=== PATIENT | female | born 1955 | race Caucasian/White ===

== ENCOUNTER → 2016-08-27 | Outpatient (CLI) | payer OTHER ==
[~2016-08-27] MED LIST: ACYCLOVIR 200200 MG; ADIPEX-P37.5 M1 PO; ADVAIR 250-501 EACH IH; ALDACTONE25 MG PO; ASMANEX0.135 GM IH; ATRALIN45 GM TP; BACLOFEN 10MG T10 M1 PO; CLARINEX5 MG PO; ENDOCET 10-3251 EACH PO; ENDOCET 5-3251 EACH PO; FENTANYL PA12 MCG/H1 TP; FENTANYL PA25 MCG/HR TP; FINACEA50 GM TP; IBUPROFEN 800800 M1 PO; KAPVAY0.1 MG PO; LEVOTHROID150 MCG PO; LIDODERM 5%1 PATCH TOP; LIDODERM TP; MELOXICAM7.5 MG PO; METHOCARBAMOL750 MG PO; NEURONTIN 300300 M1 PO; NOVAFERRUM 5050 MG PO; OMEPRAZOLE20 M2 PO; ORACEA40 MG PO; OXYCODONE-ACET1 EAC2 PO; OXYCONTIN20 MG PO; POTASSIUM20; PREMPRO 0.625-1 EACH PO; PRISTIQ50 MG PO; PROVENTIL; SINGULAIR 10 MG10 M1 PO; TOPAMAX50 MG PO; TOPROL XL100 MG PO; VITAMIN D 5050000 I1; XANAX 0.5 MG0.5 M1 PO; XANAX XR2 MG PO
[2016-08-27 10:35] LABS: CREATININE 0.9 mg/dL (0.6-1.0)
== END ==
LOC: CAT 07:50
PROVIDERS: Nurse Practitioner
DX: R10.9 Unspecified abdominal pain (principal)

== ENCOUNTER 2016-10-09 05:30 | Day surgery (SDC) | payer OTHER ==
[~2016-10-09] VITALS: Ht 165.1 cm; Wt 113.9 kg
[2016-10-09] VITALS (8 sets, daily range): BP systolic 94–119; BP diastolic 56–89
--- NOTE | ~2016-10-09 | S ---
[facility] [place] [address] SURGICAL PATH RPT PROCEDURE Name: SAVI PEREZ Room #: [facility].#: [id number] Admission: 10/09/16 Date of : 55 Discharge: 10/10/16 Report #: [id number] Path Case #: [id number] PATHOLOGY REPORT COLLECTION DATE: 10/09/2016 RECEIVED DATE: 10/09/2016 SUBMITTING PHYS: Dr. Cuco Corrales OTHER PHYS: Dr. 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 - Cholelithiasis. COMMENT: A sales representative publications slide is co-reviewed by Dr. Akhil Contreras. (IUV:mgr; 10/11/2016) PATHOLOGIST: Naomie Ace M.D. REPORT ELECTRONICALLY SIGNED BY: Naomie Ace M.D. DATE/TIME: 10/11/2016 15:27 * * * * * * * * * * * * GROSS PATHOLOGY: Received in formalin labeled "Savi Perez, gallbladder," is a 8.2 x 3.5 x 2.8 cm, previously opened torn and ragged gallbladder with a moderate amount of attached adipose tissue, green blue to pink ragged and rough serosal surfaces. The ductal opening to the gallbladder is torn open. The gallbladder reveals yellow-green smooth to velvety mucosa and an average wall thickness of 0.1 cm. Calculi are present, fernandez to brown, friable and range in size from 0.1 to 0.8 cm in maximum dimension. No masses are noted grossly. Watermelon Inspector sections from the body and fundus are submitted along with the proximal margin in cassette A1. (CAN; 10/10/2016) CLINICAL HISTORY: Cholecystitis [facility] [place] [address] SURGICAL PATH RPT PROCEDURE Name: SAVI PEREZ Obdulia Room #: [facility].#: [id number] Admission: 10/09/16 Date of : 55 Discharge: 10/10/16 Report #: [id number] Path Case #: [id number] INITIAL CPT CODE(S): A; 15303 Professional services performed by [facility] [address], [place] [address] Technical services performed by [employer] at [address] [place] [address], [place] [address]. [facility] [address] [place] [address] PHONE: [phone] DIRECTOR: Abundio Odonnell M.D. * * * END OF REPORT * * *
--- NOTE | ~2016-10-09 | EKG ---
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
[~2016-10-09 05:30] MED LIST changes: +ABILIFY10 MG PO; +LEVOTHYROXIN0.175 MG PO; +OXYCODONE HCL E10 MG PO; +REMERON15 M1 PO; +VENTOLIN HFA 1818 GM INH
[2016-10-09 07:13] LABS: CALCIUM 8.9 mg/dL (8.5-10.1); CREATININE 1.1 mg/dL (0.6-1.0); POTASSIUM 3.9 mmol/L (3.5-5.1)
[2016-10-10 00:38] VITALS: BP 109/61
[2016-10-10 04:00] VITALS: BP 116/73
[2016-10-10 06:31] LABS: HEMOGLOBIN 10.7 gm/dL (12.0-15.0); MCH 26.3 pg (26.0-34.0); MCHC 32.6 g/dL (28.0-37.0); MCV 80.6 fL (80.0-100.0); RBC 4.09 mil/uL (4.20-5.00); WBC 9.6 thou/uL (4.0-11.0)
[2016-10-10 06:42] LABS: CALCIUM 8.6 mg/dL (8.5-10.1); POTASSIUM 4.2 mmol/L (3.5-5.1)
[2016-10-10 09:03] VITALS: BP 118/62
[2016-10-10] MEDS ORDERED: HYDROCODON-ACE1 EAC7 PO (10:16)
[2016-10-10 11:43] VITALS: BP 118/62
== END 2016-10-10 12:32 | disposition home or self-care (01) ==
LOC: OR 05:30 → TBA 05:30 → OR 12:34 → 5S 13:28 → OR 15:51
PROVIDERS: Surgery
DX: K80.12 Calculus of gallbladder with acute and chronic cholecystitis without obstruction (principal); K82.8 Other specified diseases of gallbladder; K66.0 Peritoneal adhesions (postprocedural) (postinfection); E66.01 Morbid (severe) obesity due to excess calories; I10 Essential (primary) hypertension; J45.909 Unspecified asthma, uncomplicated; E03.9 Hypothyroidism, unspecified; G43.909 Migraine, unspecified, not intractable, without status migrainosus; G47.33 Obstructive sleep apnea (adult) (pediatric); F32.89 Other specified depressive episodes; F41.8 Other specified anxiety disorders; K21.9 Gastro-esophageal reflux disease without esophagitis; Z98.42 Cataract extraction status, left eye; Z96.642 Presence of left artificial hip joint; Z98.890 Other specified postprocedural states; Z68.41 Body mass index [BMI] 40.0-44.9, adult
CPT/HCPCS: 50010; 50101; 50249; 50331; 50411; 50555; 50558; 50962; 51489; 51975; 52265; 52266; 53307; 54022; 54118; 55245; 55317; 56462; 56525; 56526; 56639; 56970; 62110; 62900; 65065; 70005

== ENCOUNTER 2016-12-11 12:58 | Emergency (ER) | payer OTHER ==
[~2016-12-11] VITALS: Ht 167.6 cm; Wt 115.7 kg
[~2016-12-11 12:58] MED LIST changes: +HYDROCODON-ACE1 EAC7 PO
== END 2016-12-11 15:20 | disposition home or self-care (01) ==
LOC: ER 12:58
DX: S49.92XA Unspecified injury of left shoulder and upper arm, initial encounter (principal); I10 Essential (primary) hypertension; E03.9 Hypothyroidism, unspecified; J45.909 Unspecified asthma, uncomplicated; G43.909 Migraine, unspecified, not intractable, without status migrainosus; K21.9 Gastro-esophageal reflux disease without esophagitis; F32.9 Major depressive disorder, single episode, unspecified; F41.9 Anxiety disorder, unspecified; G47.30 Sleep apnea, unspecified; Z96.642 Presence of left artificial hip joint; Z88.8 Allergy status to other drugs, medicaments and biological substances; W01.0XXA Fall on same level from slipping, tripping and stumbling without subsequent striking against object, initial encounter; Y93.89 Activity, other specified; Y92.89 Other specified places as the place of occurrence of the external cause; Y99.8 Other external cause status

== ENCOUNTER 2019-05-31 04:28 | Emergency (ER) | payer OTHER ==
[~2019-05-31] VITALS: Ht 167.6 cm; Wt 136.1 kg
[2019-05-31 04:49] LABS: URINE BILIRUBIN NEGATIVE (Negative); URINE BLOOD 2+ (Negative); URINE CLARITY CLEAR; URINE COLOR YELLOW; URINE GLUCOSE-RANDOM* NEGATIVE (Negative); URINE KETONES NEGATIVE (Negative); URINE NITRITE-REFLEX NEGATIVE (Negative); URINE PROTEIN (DIPSTICK) NEGATIVE (Negative); URINE SPECIFIC GRAVITY >= 1.030 (1.005-1.035); URINE UROBILINOGEN 0.2 E.U./dl (0.2-1.0)
[2019-05-31 04:51] LABS: URINE LEUKOCYTES-REFLEX 1+ (Negative)
[2019-05-31 04:58] LABS: BACTERIA-REFLEX 1-9 Few /HPF (None Seen); CASTS None Seen /LPF (None Seen); CRYSTALS None Seen /LPF (None Seen); MUCUS 0-3 Light strn/LPF (None Seen); SQUAMOUS 0-3 Few /LPF (0-3); TRANSITIONAL EPITHEL CELL 0-3 Few /LPF (None Seen); URINE RBC 0-2 Rare /HPF (0-2); URINE WBC-REFLEX 6-15 Few /HPF (0-5)
[2019-05-31 05:44] LABS: BASOPHILS 0.7 % (0.0-2.0); EOSINOPHILS 0.2 % (0.0-3.0); HEMATOCRIT 45.1 % (37.0-47.0); HEMOGLOBIN 14.9 gm/dL (12.0-15.0); LYMPHOCYTES 8.2 % (24.0-44.0); MCH 31.1 pg (26.0-34.0); MCHC 32.9 g/dL (28.0-37.0); MCV 94.4 fL (80.0-100.0); MONOCYTES 8.3 % (1.0-8.0); PLATELET COUNT 272 thou/uL (150-400); POLYS 82.6 % (36.0-66.0); RBC 4.78 mil/uL (4.20-5.00); RDW 13.8 % (10.5-14.5); WBC 13.4 thou/uL (4.0-11.0)
[2019-05-31 05:51] LABS: ANION GAP 14 mmol/L (7-16); BUN 19 mg/dL (7-18); CALCIUM 9.6 mg/dL (8.5-10.1); CHLORIDE 101 mmol/L (98-107); CO2 22 mmol/L (21-32); CREATININE 1.5 mg/dL (0.6-1.0); GLUCOSE 165 mg/dL (74-106); POTASSIUM 4.1 mmol/L (3.5-5.1); SODIUM 137 mmol/L (136-145)
[2019-05-31 05:57] LABS: ALBUMIN 3.4 g/dL (3.4-5.0); DIRECT BILIRUBIN < 0.1 mg/dL (<0.1-0.2); SGOT 17 U/L (15-37); SGPT 20 U/L (30-65); TOTAL BILIRUBIN 0.3 mg/dL (<0.1-1.0); TOTAL PROTEIN 7.7 g/dL (6.4-8.2)
[2019-05-31] MEDS ORDERED: KEFLEX500 M1 PO (06:42)
[2019-05-31] MEDS ORDERED: ZOFRAN ODT4 MG PO (06:42)
[2019-05-31] MEDS ORDERED: MOBIC15 MG PO (06:42)
[2019-05-31 07:00] VITALS: BP 157/94
== END 2019-05-31 07:00 | disposition home or self-care (01) ==
LOC: ER 04:28
PROVIDERS: Emergency Medicine
DX: N39.0 Urinary tract infection, site not specified (principal); I10 Essential (primary) hypertension; E03.9 Hypothyroidism, unspecified; K21.9 Gastro-esophageal reflux disease without esophagitis; G47.30 Sleep apnea, unspecified; J45.909 Unspecified asthma, uncomplicated; F32.9 Major depressive disorder, single episode, unspecified; F41.9 Anxiety disorder, unspecified

== ENCOUNTER → 2020-01-21 | Outpatient (CLI) | payer OTHER ==
[~2020-01-21] MED LIST changes: +KEFLEX500 M1 PO; +METFORMIN HCL500 MG PO; +MOBIC15 MG PO; +REMERON 30 MG T30 M1 PO; +ZOFRAN ODT4 MG PO
== END ==
LOC: LAB 10:49
PROVIDERS: ATTEND Surgery
DX: Z01.812 Encounter for preprocedural laboratory examination (principal); Z20.828 Contact with and (suspected) exposure to other viral communicable diseases

== ENCOUNTER 2020-01-26 13:33 | Observation (INO) | payer OTHER ==
[2020-01-26] VITALS (8 sets, daily range): BP systolic 132–171; BP diastolic 71–92
[~2020-01-26] VITALS: Ht 167.6 cm; Wt 140.6 kg
[2020-01-26 14:22] LABS: CALCIUM 9.2 mg/dL (8.5-10.1); CREATININE 1.1 mg/dL (0.6-1.0); POTASSIUM 3.9 mmol/L (3.5-5.1)
--- NOTE | 2020-01-26 14:48 | EKG ---
[facility] [place] [address] ELECTROCARDIOGRAM REPORT Name: EMILY PEREZ Room #: 150-1 [facility]..#: [id number] Admission: 01/26/20 Attend Phys: Erwin Hernandez MD Discharge: Date of : 55 Report #: [id number] THIS REPORT FOR: cc: Nieves Malik MD, Jennifer S. 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1955 Requested By: Erwin Hernandez Order Number: [id number] MD: Scott Briggs Measurements Intervals [place] Rate: 91 P: 15 [place]: 172 QRS: -21 QRSD: 88 T: 20 QT: 353 QTc: 435 Interpretive Statements Sinus rhythm Low voltage, precordial leads LVH by voltage Compared to ECG 10/09/2016 07:13:30 Low QRS voltage now present Left ventricular hypertrophy now present Electronically Signed On 01-26-2020 14:48:28 CDT by Scott Briggs [email or web address] <ELECTRONICALLY SIGNED> By: Scott Briggs MD, FACC 01/26/20 1448 1404 1404 Scott Briggs MD, FACC /EPI
--- NOTE | 2020-01-27 01:05 | NUR ---
PT GOT TO THE FLOOR DURING SHIFT CHANGE.PT C/O PAIN ON HER ABD,MANAGED WITH MED.UP WITH ASSIST X1/GAIT BELT AND WALKER TO THE BR.LAP SITES NOTED ON HER ABD COVERED WITH BANDAID AND ABD BINDER.SCD TO BLE.PT VOIDING WELL.PT ENCOURAGED TO USE HER INCENTIVE SPIROMETER WHILE AWAKE.CALL LIGHT WITHIN REACH.
[2020-01-27 03:47] VITALS: BP 117/64
[2020-01-27 08:11] VITALS: BP 143/85
--- NOTE | 2020-01-27 12:48 | O ---
[facility] [place] [address] OPERATIVE REPORT Name: EMILY PEREZ Room #: 445-P [facility] M.Hodan#: [id number] Admission: 01/26/20 Attend Phys: Erwin Hernandez MD Discharge: Date of : 55 Report #: [id number] THIS REPORT FOR: cc: Nieves Malik MD, Jennifer S. MD Chu,Erwin Stevens MD ~ CC: Nieves Hernandez DATE OF SERVICE: 01/26/2020 PREOPERATIVE DIAGNOSIS: Incarcerated incisional hernia. POSTOPERATIVE DIAGNOSES: Incarcerated incisional hernia with omentum stuck in the hernia sac. Her portion of the small bowel, probably have been inside the hernia sac also. PROCEDURES PERFORMED: Laparoscopic repair of incarcerated incisional hernia with Ventralight mesh 6 x 6-inch kalispel. ANESTHESIA: General. COMPLICATIONS: None. ESTIMATED BLOOD LOSS: 50 mL. PROCEDURE NOTE: With the patient under general anesthesia, abdomen was prepped and draped in sterile fashion. Towels were placed around the operative site. Ioban was placed over the abdomen. Drape was then placed over this area. Time-out was performed. The patient did receive preoperative IV antibiotics. A 0.25% Marcaine was used to anesthetize the skin and subcutaneous tissue. A cutdown incision was made in the left upper quadrant. This is about 2.5 cm in length. Dissection was carried down through the subcutaneous tissue. The anterior fascia was identified. The anterior fascia was incised transversely. The muscle was spread along the length of its fiber vertically. The posterior fascia was identified. Posterior fascia was opened along with the peritoneum. 0 Vicryl suture placed on the fascia edges for retraction, both the anterior fascia and the posterior fascia and peritoneum. Air balloon trocar was then placed under direct visualization in the peritoneal cavity. The balloon was inflated, CO2 was placed. After the patient was asleep, the hernia, did not feel quite the size that it did preoperatively. A laparoscopic evaluation of the abdomen was performed. Two 5 mm trocars were placed in the lateral abdomen lateral to the inferior epigastric artery. These were placed under visualization. Laparoscopically, there was a small amount of blood in the right lower quadrant; these were not coming from a trocar site. There was omentum stuck inside the hernia sac. I was looking for the source of this blood; it was [address] [address] OPERATIVE REPORT Name: EMILY PEREZ Room #: 445-P [facility] Catherine Badillo#: [id number] Admission: 01/26/20 Attend Phys: Erwin Hernandez MD Discharge: Date of : 55 Report #: [id number] difficult to find. I believe it probably came from the omentum as it was pulled up with the insufflation. There were 2 areas of small bowel that looked irregular; 1 to the right side that has some thickening to it and there was a definite heavy thickened, inflamed bowel that was more in the lower midline, which the mesentery actually had stuck to each other. His bowels pretty heavy, it was not obstructed. I suspect this was inside the hernia. The patient has stated that she has been having more and more issues from the hernia. I did not see any active bleeding from this area. The omentum was taken down. There was some blood along the omentum posterior that I could not see. The omentum was taken down out of the hernia sac using a Harmonic scalpel. The omentum had kind of compartmentalized as it went up into the hernia. There was one main defect. There was another defect on the patient's right side. The omentum came out and ended up having length of the omentum that was devascularized. The vitalized part of the omentum was resected. There was also a band in the omentum that I divided and I think I ended up taking that part of the omentum out anyway. Minimum was brought out through the cutdown site without difficulty. Specimen will be sent to pathology. The fascia was then isolated. The defect was measured and measured approximately 5-6 cm diameter. This was as I thought was due to the gallbladder surgery. A 6-inch circular Ventralight was chosen. This was placed through the cutdown side. The balloon trocar was then replaced. The mesh was oriented. The tubing of the mesh was brought out through the center part of the hernia sac. The balloon was inflated on the Ventralight and this allowed the mesh to open up completely. Once it was opened up and seen to be positioned properly, the mesh was tacked with SorbaFix. 30 tacks were used. The balloon was deflated and then removed. Transfascial sutures were then placed at 12, 2 o'clock, 10 o'clock position and then also at 4, 6 and 8 o'clock position. Six sutures were placed. Due to the patient's body habitus, I felt more secure by having more transfascial suture. This was placed with CV2 [place]-Lambert suture. The needle was actually removed and a suture retrieval was used to go through the abdominal wall and then one of the end of the suture was brought out and then the suture retriever was placed through the same small hole and then into the wall to the mesh. This grabbed the other end. Sutures tied down. This was performed at all 6 sites. Irrigation was performed. No bleeding was identified. Bowel was not ischemic. There was no injury to the bowel identified. There was definite scar involving 2 section of the bowel consistent with the bowel being inside the hernia sac. Also when I looked at the content of the hernia sac, the omentum that was seen did not seem to fill the whole hernia sac. Also the patient's omentum seemed to be more midline and then to the left. The intestines on the lower part of the abdomen and also to the right did not have the omentum covering it. Irrigation was aspirated out as much as possible. CO2 was evacuated. Trocars removed. The fascia defect at the cutdown site was closed. The posterior fascia was closed with [id number] 0 PDS x 2. The anterior fascia was closed with 0 PDS [id number] x 2. Skin was irrigated. Skin was closed with 5-0 PDS at the 3 trocar sites. The small incisions for the suture retrieval, these were closed [address] [address] OPERATIVE REPORT Name: EMILY PEREZ Room #: 445-P [facility] M.R.#: [id number] Admission: 01/26/20 Attend Phys: Erwin Hernandez MD Discharge: Date of : 55 Report #: [id number] with Dermabond. Band-Aids applied. The patient was awakened and taken to recovery and tolerated the procedure well. <ELECTRONICALLY SIGNED> By: Erwin Hernandez MD 01/27/20 1248 1142 1223 Erwin Hernandez MD /nt
[2020-01-27] MEDS ORDERED: PERCOCET PO (13:13)
[2020-01-27] MEDS ORDERED: VALIUM5 MG PO (13:14)
[2020-01-27 13:46] VITALS: BP 143/85
--- NOTE | 2020-01-27 14:25 | NUR ---
CM REVIEWED CHART. PT IS S/P HERNIA REPAIR. PT REPORTS SHE LIVES IN A TOWNHOUSE ALONE. PT REPORTS 28 STEPS WITH HANDRAILS TO ENTER. PT REPORTS USING A CANE FOR AMBULATION AT TIMES. PT REPORTS SHE WILL HAVE NO NEEDS FROM CM. PT HAS ORDERS TO DISCHARGE HOME TODAY.
--- NOTE | 2020-01-27 14:59 | NUR ---
PT CARE ASSUMED AT 0700. A&Ox4. IV PATENT WITH NO REDNESS OR EDEMA, FLUIDS INFUSING WITH ABX GOING. PAIN MANAGED WELL WITH PAIN MEDICATION ON BOARD. 9 LAPSITES DRY AND INTACT. PT PERSONAL CANE IN ROOM. PT DISCHARGED WITH NO FURTHER QUESTIONS. DIET NOT ADVANCED PER DR. BARNES. DR. BARNES EDUCATED PT ON DIET. SCD'S IN PLACE. IV REMOVED
--- NOTE | 2020-01-28 18:06 | PATH ---
[facility] [address] [place] [address] PATHOLOGY RPT PROCEDURE Name: SAVI PEREZ Obdulia Room #: 445-P [facility] Badillo#: [id number] Admission: 01/26/20 Date of : 55 Discharge: 01/27/20 Report #: [id number] Path Case #: [id number] [facility] Accession Number: [id number] . 01 Material submitted: . abdomen - OMENTUM . 01 Clinical history: . LAPAROSCOPIC HERNIA, INCISIONAL REPAIR WITH MESH . 02 Diagnosis: Omentum, omentectomy: - 8.8 cm of omentum associated with congestion and moderate chronic inflammation as well as mesothelial hyperplasia, history of hernia. . (IUV:mml; 01/28/2020) QLM 01/28/2020 1514 Local . 02 Electronically signed: . Naomie Ace MD, Pathologist NPI- [id number] . 01 Gross description: . Received in formalin labeled "Savi Perez, omentum" are multiple portions of fernandez-yellow lobulated fibroadipose tissue measuring in aggregate 8.8 x 6.7 x 1.8 cm. Focal adhesions are present on the external surfaces. Upon sectioning, the cut surfaces are yellow-fernandez and lobulated. No masses are grossly identified. Department Clerk tissue is submitted in cassette A1. ([facility]; 01/27/2020) [facility] 01/27/2020 1711 Local . 02 Pathologist provided ICD-10: K65.9 . 02 CPT . 662087 Specimen Comment: A courtesy copy of this report has been sent to [phone], [phone]- Specimen Comment: [phone] Specimen Comment: Report sent to / DR PEDRO Performed at: [address] [id number] MD Jose Mosher MD Phone: [phone] Performed at: [address] [address] PATHOLOGY RPT PROCEDURE Name: SAVI PEREZ Room #: 445-P NICK Badillo#: [id number] Admission: 01/26/20 Date of : 55 Discharge: 01/27/20 Report #: [id number] Path Case #: [id number] [address] [place], [place] [id number] MD Naomie Ace MD Phone: [phone]
== END 2020-01-27 14:30 | disposition home or self-care (01) ==
LOC: OR 13:33 → TBA 13:56 → 4S 18:52 → OR 18:53 → 4S 18:54
PROVIDERS: ADMIT Surgery; ATTEND Surgery
DX: K43.0 Incisional hernia with obstruction, without gangrene (principal); N39.0 Urinary tract infection, site not specified; K80.00 Calculus of gallbladder with acute cholecystitis without obstruction; N17.9 Acute kidney failure, unspecified; E87.2 Acidosis; E66.01 Morbid (severe) obesity due to excess calories; Z68.43 Body mass index [BMI] 50.0-59.9, adult; Z79.899 Other long term (current) drug therapy
CPT/HCPCS: 50010; 50101; 50386; 50555; 50687; 50978; 51489; 52265; 53065; 53307; 53310; 53312; 53335; 54022; 54118; 56524; 56525; 56526; 56530; 57092; 62110; 62900; 70005